=== PATIENT | male | born 2000 | race Caucasian/White ===

== ENCOUNTER 2019-06-24 22:46 | Emergency (ER) | payer BC ==
[~2019-06-24] VITALS: Ht 175.3 cm; Wt 57.6 kg
[2019-06-24 22:48] VITALS: BP 127/75
--- NOTE | 2019-06-24 22:48 | NUR ---
ED Nurse Note: Walk-in patient presents with complaints of recent allergic reaction to nuts at a restaurant. Patient reports beginning to wheeze after ingestion of potential allergen. Patient looks calm, is alert and oriented x 4, exhibits no s/s of acute distress and has no audible wheezes on auscultation. Will continue to monitor.
[2019-06-24] MEDS ORDERED: Solu-MEDROL 125mg Inj IVP ONE (23:00)
[2019-06-24] MEDS ORDERED: DiphenhydrAMINE 50mg/ml Inj IVP ONE (23:00)
[2019-06-24] MEDS ORDERED: BENADRYL25 MG ORAL (23:08)
[2019-06-24] MEDS ORDERED: PREDNISONE20 MG ORAL (23:08)
[2019-06-24] MEDS ORDERED: EPIPEN 2-P0.3 MG/0.3 IM (23:08)
--- NOTE | 2019-06-24 23:08 | Emergency Room Report ---
History of Present Illness General Chief Complaint: Allergic Reaction Source: Patient Present Illness HPI This is a 18-year-old male with a history of peanut allergy. He presents with chief complaint of allergic reaction. Patient was at a restaurant eating chips. 1 of his friend also had a peanut allergy and start complaining of lip swelling. He also had itchiness. They check with the food staff and the chips were cooked in peanut only. Patient took a couple Benadryl and felt better. He later on had some respiratory issue with wheezing. He gave himself a shot of EpiPen and now is asymptomatic. He denies any fever chills but denies any nausea vomiting. Allergies: Coded Allergies: AMOXICILLIN (Verified Allergy, Unknown, 06/24/19) PEANUT (Verified Allergy, Unknown, 06/24/19) PENICILLINS (Verified Allergy, Unknown, 06/24/19) Patient History Past Medical History: see triage record, old chart reviewed Past Surgical History: none Pertinent Family History: none Social History: Denies: smoking Immunizations: other Reviewed Nursing Documentation: PMH: Agreed; PSxH: Agreed Nursing Documentation-PMH Past Medical History: No Stated History Review of Systems Eye: Denies: eye pain, blurred vision ENT: Denies: ear pain, nose congestion, throat swelling Respiratory: Reports: wheezing; Denies: cough, shortness of breath Cardiovascular: Denies: chest pain, palpitations Gastrointestinal: Denies: abdominal pain, diarrhea, nausea, vomiting Musculoskeletal: Denies: back pain, joint pain Skin: Denies: rash Neurological: Denies: headache, numbness Endocrine: Denies: increased thirst, increased urine Hematologic/Lymphatic: Denies: easy bruising All Other Systems: negative except mentioned in HPI Physical Exam Vital Signs Date Time Temp Pulse Resp B/P (MAP) Pulse Ox O2 Delivery O2 Flow Rate FiO2 06/24/19 22:48 98.2 76 16 127/75 (92) 96 Room Air Vitals normal Sp02 EP Interpretation: reviewed, normal General Appearance: well appearing, no apparent distress, alert Head: normocephalic, atraumatic Eyes: bilateral eye PERRL, bilateral eye EOMI ENT: hearing grossly normal, normal pharynx Neck: full range of motion, supple, no meningismus Respiratory: chest non-tender, lungs clear, normal breath sounds Cardiovascular #1: regular rate, rhythm, no murmur Gastrointestinal: normal bowel sounds, non tender, no mass, no organomegaly, no bruit, non-distended Musculoskeletal: back normal, gait/station normal, normal range of motion Psychiatric: mood/affect normal Medical Decision Making Diagnostic Impression: Primary Impression: Allergic reaction Qualified Codes: T78.40XA - Allergy, unspecified, initial encounter ER Course Patient with allergic reaction as better after EpiPen. He has no symptoms here. Will be observed. I will start him on Benadryl and prednisone. Last Vital Signs Date Time Temp Pulse Resp B/P (MAP) Pulse Ox O2 Delivery O2 Flow Rate FiO2 06/24/19 22:48 98.2 76 16 127/75 (92) 96 Room Air Status: unchanged Disposition: HOME, SELF-CARE Condition: Stable Scripts Epinephrine (Epipen 2-Dayron) 0.3 Mg/0.3 Ml Auto.injct 0.3 MG IM one, #1 EA Prov: Domenic Christian MD 06/24/19 Prednisone* (PREDNISONE*) 20 Mg Tablet 40 MG ORAL DAILY for 5 Days, TAB Prov: Domenic Christian MD 06/24/19 Diphenhydramine Hcl* (BENADRYL*) 25 Mg Capsule 50 MG ORAL Q6H PRN for Itching, #30 CAP Prov: Domenic Christian MD 06/24/19 Patient Instructions: Food Allergy Additional Instructions: Follow-up with in 7 days. Return if symptoms worsen. Domenic Christian MD Jun 24, 2019 23:08
--- NOTE | 2019-06-24 23:18 | NUR ---
ED Nurse Note: Patient tolerated medication administatration and IV start well. Patient has no complaints at this time and is accompanied by his dad and girlfriend at bedside. Vital signs within normal range and documented. Will continue to monitor.
[2019-06-24 23:20] VITALS: BP 124/74
[2019-06-25 00:07] VITALS: BP 124/74
--- NOTE | 2019-06-25 00:07 | NUR ---
ED Nurse Note: Patient cleared for discharge, no s.s of acute distress or respiratory abnormalities. Patient verbalized understanding of dischare instructions. Patient departed with all belongings accompanied by his father and girlfriend.
== END 2019-06-25 00:07 | disposition home or self-care (01) ==
LOC: EMR 23:03
DX: T78.1XXA Other adverse food reactions, not elsewhere classified, initial encounter (principal); Z91.010 Allergy to peanuts; L29.9 Pruritus, unspecified; R22.0 Localized swelling, mass and lump, head; Z88.0 Allergy status to penicillin; Z88.1 Allergy status to other antibiotic agents; X58.XXXA Exposure to other specified factors, initial encounter
CPT/HCPCS: 96374; 96375; 99284; J1200; J2930